=== PATIENT | male | born 1980 | race Caucasian/White ===

== ENCOUNTER 2018-12-05 12:11 | Emergency (ER) | payer SELFPAY ==
[~2018-12-05] VITALS: Ht 182.9 cm; Wt 80.0 kg
[2018-12-05 12:14] VITALS: BP 136/84
== END 2018-12-05 12:39 | disposition left against medical advice (07) ==
LOC: ER 12:23
DX: Z53.21 Procedure and treatment not carried out due to patient leaving prior to being seen by health care provider (principal)